=== PATIENT | male | born 2000 | race Two or more races ===

== ENCOUNTER 2020-10-28 10:18 | Emergency (ER) | payer OTHER, SELFPAY ==
--- NOTE | ~2020-10-28 | XR_ITS ---
EXAMINATION: XR CHEST CLINICAL INFORMATION: Cough COMPARISON: Chest x-ray May 17, 2016 TECHNIQUE: Frontal view of the chest was obtained. FINDINGS: Cardiac silhouette is normal in size. The lungs are well aerated. There is no lobar consolidation. No pleural effusion or pneumothorax. No gross osseous abnormality. XR/XR chest 1V IMPRESSION: Stable examination demonstrating no acute pulmonary pathology.
[2020-10-28 10:26] VITALS: BP 145/86; PULSE 112; RESP 18; TEMP 37.2; O2SAT 95; BMI 32.3
--- NOTE | 2020-10-28 10:43 | ECG_ITS ---
Test Reason : CP Blood Pressure : / mmHG Vent. Rate : 098 BPM Atrial Rate : 098 BPM P-R Int : 132 ms QRS Dur : 084 ms QT Int : 348 ms P-R-T Axes : 064 074 057 degrees QTc Int : 444 ms Normal sinus rhythm with sinus arrhythmia Normal ECG When compared with ECG of 17-MAY-2016 22:46, No significant changes seen Referred By: Sophie Hirsch Electronically Signed By:NOAH CALLES
--- NOTE | 2020-10-28 10:44 | ED.SOB ---
HPI - SOB/Dyspnea General Chief Complaint: Dyspnea Stated Complaint: DIFF BREATHING CHEST PAIN Time Seen by Provider: 10/28/20 10:44 Source: patient Mode of arrival: ambulatory Limitations: no limitations History of Present Illness MD elicited complaint: shortness of breath, cough, pain with inspiration and chest pain Onset (ago): day(s) (2) Context: other (started after rearranging his room and there was significant dust) Timing: constant Severity: moderate Exacerbating factors: exertion, coughing and inspiration Relieving factors: nothing Known history of: asthma (mom notes one time he needed an inhaler when he was younger but no formal dx of asthma) Associated symptoms: chest pain, pain with inspiration and cough Treatment prior to arrival: none Related Data Previous Rx's Medication Instructions Recorded prednisone 40 mg PO DAILY 5 Days #10 tab 10/28/20 Allergies Allergy/AdvReac Type Severity Reaction Status Date / Time No Known Allergies Allergy Unverified 01/11/20 16:56 [No Known Allergies*] Review of Systems Review of Systems: Constitutional : No Fever, No Chills ENT/Mouth : No sore throat, No Rhinorrhea, No Swallowing Difficulty Eyes: No Eye Pain, No Swelling, No Redness Cardiovascular : pos Chest Pain, positive SOB, No Orthopnea, no Edema Respiratory : No Cough, No Sputum, No Wheezing, positive dyspnea Gastrointestinal : No Nausea, No Vomiting, No Diarrhea, No abdominal Pain, No Hematochezia, No Melena Genitourinary : No Dysuria, No Urinary Frequency, No Hematuria Musculoskeletal : No joint pain, No Myalgias Skin : No Skin Lesions, No rash Neuro : No Weakness, No Numbness, No Dizziness, No Headache Psych : No Anxiety/Panic, No Depression Heme/Lymph: No Bruising, No Lymphadenopathy Endocrine : No Polyuria, No Polydipsia All other systems reviewed and are negative PMFSH Past Medical History Attestation statement: The following information was validated with the patient. Medical History Obesity (BMI 30-39.9) Family History Family History (Updated 09/05/20 @ 09:30 by Ronald Bates MD) Father Myocardial infarct Social History Social History (Updated 10/28/20 @ 11:02 by Sophie Hirsch DO) Alcohol intake: never Patient Tobacco Use Status: Never used Tobacco Advance Directives: No Advance Directives Information Provided: Yes Physical Exam Vital Signs: Vital Signs: Last Vital Signs Temp 98.9 F 10/28/20 10:26 Pulse 112 H 10/28/20 10:26 Resp 18 10/28/20 10:26 BP 145/86 H 10/28/20 10:26 Pulse Ox 95 10/28/20 10:26 Body Mass Index 32.3 Appearance: Alert. Oriented X3. No acute distress. Eyes: Pupils equal, round and reactive to light. ENT: Pharynx normal. Neck: Normal inspection. Neck supple. CVS: tachycardic heart rate and rhythm. Pulses normal. Respiratory: No respiratory distress. Breath sounds diminished with very faint end exp wheezes noted Abdomen: Soft and nontender. Skin: Skin warm and dry. Normal skin color. Normal skin turgor. Extremities: No lower extremity edema. No calf ttp Neuro: Oriented X 3. No motor deficit. No sensory deficit. Course Course Course Narrative: negative workup feels better after INH will DC home MDM - SOB/Dyspnea MDM Narrative Medical decision making narrative: 19 yo male with hx of reactive airway disease in the past was rearraning his room 2 days ago was exposed to a lot of dust - he c/o pleuritic chest pain since then with dyspnea , will need ddimer given tachycardia, troponin x 1, cxr, albuterol INH as this could just be reactive airway disease, he had his COVID shot about 2 months ago - myocarditis unlikely Lab Data Result diagrams: 10/28/20 11:49 10/28/20 11:49 Labs: Lab Results 10/28/20 10/28/20 10/28/20 Range/Units 11:40 11:49 11:49 WBC 13.7 H (4.8-10.8) X10*3/uL RBC 5.79 (4.60-5.80) X10*6/uL Hgb 15.5 (14.0-18.0) g/dl Hct 48.1 (42-52) % MCV 83.1 (80-98) fL MCH 26.8 L (27.0-33.0) pg MCHC 32.2 (31.0-36.0) g/dl RDW 13.7 (11.0-16.0) % Plt Count 247 (160-400) X10*3/uL MPV 10.8 (9.4-12.4) fL Immature Gran % (Auto) 0.4 (0.0-0.4) % Neut % (Auto) 69.7 (45-73) % Lymph % (Auto) 16.0 L (20-40) % [place] % (Auto) 9.3 (2-11) % Eos % (Auto) 4.2 H (0-4) % Baso % (Auto) 0.4 (0-2) % Lymph # (Auto) 2.2 (1.2-4.9) X10*3/uL [place] # (Auto) 1.3 H (0.1-1.2) X10*3/uL Eos # (Auto) 0.6 H (0.0-0.4) X10*3/uL Baso # (Auto) 0.1 (0.0-0.2) X10*3/uL Abs Immat Gran (auto) 0.05 H (0.00-0.03) X10*3/uL Absolute Neuts (auto) 9.6 H (2.0-8.3) X10*3/uL Absolute Nucleated RBC 0.000 (0.0-0.012) X10*3/uL Nucleated RBC % (auto) 0.0 (0.0-0.2) /100WBC D-Dimer < 200 NG/ML Sodium (135-145) mmol/L Potassium (3.3-5.1) mmol/L Chloride (96-108) mmol/L Carbon Dioxide (22-29) mmol/L Anion Gap (12-20) BUN (9-16) mg/dL Creatinine (0.5-1.4) mg/dL Estim Creat Clear Calc Estimated GFR Random Glucose (60-115) mg/dL Calcium (8.4-10.2) mg/dL Magnesium (1.6-2.6) mg/dL Total Bilirubin (0.0-1.0) mg/dL Direct Bilirubin (0.0-0.5) mg/dL AST (5-37) U/L ALT (0-40) U/L Alkaline Phosphatase (39-117) U/L Troponin I High Sens (<3.5-35.0) ng/L Total Protein (6.5-8.0) g/dL Albumin (3.5-5.0) g/dL Lipase (8-78) U/L COVID-19 (JENNIFER) Negative (Negative) COVID-19 Clin Com See Note 10/28/20 10/28/20 Range/Units 11:49 11:49 WBC (4.8-10.8) X10*3/uL RBC (4.60-5.80) X10*6/uL Hgb (14.0-18.0) g/dl Hct (42-52) % MCV (80-98) fL MCH (27.0-33.0) pg MCHC (31.0-36.0) g/dl RDW (11.0-16.0) % Plt Count (160-400) X10*3/uL MPV (9.4-12.4) fL Immature Gran % (Auto) (0.0-0.4) % Neut % (Auto) (45-73) % Lymph % (Auto) (20-40) % [place] % (Auto) (2-11) % Eos % (Auto) (0-4) % Baso % (Auto) (0-2) % Lymph # (Auto) (1.2-4.9) X10*3/uL [place] # (Auto) (0.1-1.2) X10*3/uL Eos # (Auto) (0.0-0.4) X10*3/uL Baso # (Auto) (0.0-0.2) X10*3/uL Abs Immat Gran (auto) (0.00-0.03) X10*3/uL Absolute Neuts (auto) (2.0-8.3) X10*3/uL Absolute Nucleated RBC (0.0-0.012) X10*3/uL Nucleated RBC % (auto) (0.0-0.2) /100WBC D-Dimer NG/ML Sodium 140 (135-145) mmol/L Potassium 4.5 (3.3-5.1) mmol/L Chloride 107 (96-108) mmol/L Carbon Dioxide 23 (22-29) mmol/L Anion Gap 15 (12-20) BUN 6 L (9-16) mg/dL Creatinine 0.92 (0.5-1.4) mg/dL Estim Creat Clear Calc 136.2 Estimated GFR > 60 Random Glucose 99 (60-115) mg/dL Calcium 9.8 (8.4-10.2) mg/dL Magnesium 2.2 (1.6-2.6) mg/dL Total Bilirubin 0.8 (0.0-1.0) mg/dL Direct Bilirubin 0.2 (0.0-0.5) mg/dL AST 19 (5-37) U/L ALT 24 (0-40) U/L Alkaline Phosphatase 100 (39-117) U/L Troponin I High Sens < 3.5 (<3.5-35.0) ng/L Total Protein 7.8 (6.5-8.0) g/dL Albumin 4.6 (3.5-5.0) g/dL Lipase 13 (8-78) U/L COVID-19 (JENNIFER) (Negative) COVID-19 Clin Com ECG Data Attestation: I personally reviewed and interpreted this ECG as follows: ECG interpretation date: 10/28/20 ECG interpretation time: 11:29 Interpretation: Rate: 98 Rhythm: NSR [place]: normal Normal P waves. Normal LASHAUN. Normal QRS complex. ST T wave : normal no TERENCE qTC: normal prior studies: no acute ischemia The study has been interpreted contemporaneously by me. . Scores Heart Score History: -0- slightly suspicious ECG: -0- normal Age: -0- < or = 45 Risk factory: -0- no risk factors known Troponin: -0- < or = normal limit Score: 0 Risk: 1.7% Discharge Plan Discharge Clinical Impression: Atypical chest pain, Mild intermittent reactive airway disease Patient Disposition: Home, Self-Care Instructions: Reactive Airways Disease (ED) Additional Instructions: return to ED for any worsening symptoms or concerns 2 puffs on inhaler every 4 hours for wheezing and shortness of breath Prescriptions: New prednisone 20 mg tablet 40 mg PO DAILY 5 Days Qty: 10 RF: 0 Referrals: Po,Ronald Cohn MD [Primary Care Provider] - 2 days (if not better) Stand Alone Forms: Work/School Release
[2020-10-28 11:55] LABS: MANUAL DIFF FLAG NO
[2020-10-28 11:57] LABS: Basophils Absolute Auto 0.1 X10*3/uL (0.0-0.2); Basophils Percent Auto 0.4 % (0-2); Eosinophils Absolute Auto 0.6 X10*3/uL (0.0-0.4); Eosinophils Percent Auto 4.2 % (0-4); Hematocrit 48.1 % (42-52); Hemoglobin 15.5 g/dl (14.0-18.0); Imm Gran Abs Auto 0.05 X10*3/uL (0.00-0.03); Imm Gran Pct Auto 0.4 % (0.0-0.4); Lymphocytes Absolute Auto 2.2 X10*3/uL (1.2-4.9); Mean Corpuscular HGB Conc 32.2 g/dl (31.0-36.0); Mean Corpuscular Hemoglobin 26.8 pg (27.0-33.0); Mean Corpuscular Volume 83.1 fL (80-98); Mean Platelet Volume 10.8 fL (9.4-12.4); Monocytes Absolute Auto 1.3 X10*3/uL (0.1-1.2); Monocytes Percent Auto 9.3 % (2-11); Neutrophils Absolute Auto 9.6 X10*3/uL (2.0-8.3); Neutrophils Percent Auto 69.7 % (45-73); Platelet Count 247 X10*3/uL (160-400); Red Blood Count 5.79 X10*6/uL (4.60-5.80); Red Cell Distribution Width 13.7 % (11.0-16.0); White Blood Count 13.7 X10*3/uL (4.8-10.8)
[2020-10-28 12:06] LABS: D Dimer < 200 NG/ML
[2020-10-28 12:11] LABS: COVID-19 Test Negative (Negative)
[2020-10-28] MEDS: Albuterol Sulfate 90 MCG 8 GM INHALER 2 PUFF INHALE (12:13)
[2020-10-28 12:24] LABS: Alanine Aminotransferase 24 U/L (0-40); Albumin Level 4.6 g/dL (3.5-5.0); Alkaline Phosphatase 100 U/L (39-117); Anion Gap 15 (12-20); Aspartate Amino Transferase 19 U/L (5-37); Bilirubin Direct 0.2 mg/dL (0.0-0.5); Bilirubin Total 0.8 mg/dL (0.0-1.0); Blood Urea Nitrogen 6 mg/dL (9-16); Calcium 9.8 mg/dL (8.4-10.2); Carbon Dioxide 23 mmol/L (22-29); Chloride 107 mmol/L (96-108); Creatinine Clr Calc Pharmacy 136.2; Estimated Glomerular Filt Rate > 60; Glucose Random 99 mg/dL (60-115); Lipase 13 U/L (8-78); Magnesium 2.2 mg/dL (1.6-2.6); Potassium 4.5 mmol/L (3.3-5.1); Sodium 140 mmol/L (135-145); Total Protein 7.8 g/dL (6.5-8.0)
[2020-10-28 12:26] LABS: Troponin-I High Sensitivity < 3.5 ng/L (<3.5-35.0)
[2020-10-28 12:45] VITALS: BP 134/88; PULSE 89; RESP 16; TEMP 37.2; O2SAT 98
== END 2020-10-28 12:47 | disposition home or self-care (01) ==
PROVIDERS: Emergency Provider Emergency Medicine; PCP Internal Medicine
DX: J45.20 Mild intermittent asthma, uncomplicated (principal); R07.89 Other chest pain; Z20.822 Contact with and (suspected) exposure to COVID-19
CPT/HCPCS: 36415; 71045; 80048; 80076; 83690; 83735; 84484; 85025; 85379; 87635; 93005; 99284

== ENCOUNTER 2021-10-17 10:16 | Outpatient (REF) | payer OTHER, SELFPAY ==
[2021-10-17 10:37] LABS: MANUAL DIFF FLAG NO
[2021-10-17 11:02] LABS: Basophils Absolute Auto 0.1 X10*3/uL (0.0-0.2); Basophils Percent Auto 0.4 % (0-2); Eosinophils Absolute Auto 0.4 X10*3/uL (0.0-0.4); Eosinophils Percent Auto 3.3 % (0-4); Hematocrit 48.6 % (42.0-52.0); Hemoglobin 15.3 g/dl (14.0-18.0); Imm Gran Abs Auto 0.05 X10*3/uL (0.00-0.03); Imm Gran Pct Auto 0.4 % (0.0-0.4); Lymphocytes Percent Auto 30.1 % (20-40); Mean Corpuscular HGB Conc 31.5 g/dl (31.0-36.0); Mean Corpuscular Hemoglobin 26.1 pg (27.0-33.0); Mean Corpuscular Volume 82.9 fL (80.0-98.0); Mean Platelet Volume 10.7 fL (9.4-12.4); Monocytes Absolute Auto 1.4 X10*3/uL (0.1-1.2); Monocytes Percent Auto 10.5 % (2-11); Neutrophils Absolute Auto 7.4 x10*3/uL (2.0-8.3); Neutrophils Percent Auto 55.3 % (45-73); Platelet Count 240 X10*3/uL (160-400); Red Blood Count 5.86 X10*6/uL (4.60-5.80); Red Cell Distribution Width 13.8 % (11.0-16.0); White Blood Count 13.3 X10*3/uL (4.8-10.8)
[2021-10-17 11:16] LABS: Estimated Average Glucose 108 mg/dL; Hemoglobin A1c % 5.4 %
[2021-10-17 11:31] LABS: Alanine Aminotransferase 25 U/L (0-40); Albumin Level 4.3 g/dL (3.5-5.0); Alkaline Phosphatase 100 U/L (39-117); Anion Gap 12 (12-20); Aspartate Amino Transferase 16 U/L (5-37); Bilirubin Total 0.5 mg/dL (0.0-1.0); Blood Urea Nitrogen 9 mg/dL (9-16); Calcium 9.3 mg/dL (8.4-10.2); Carbon Dioxide 26 mmol/L (22-29); Chloride 105 mmol/L (96-108); Cholesterol 179 mg/dL; Estimated Glomerular Filt Rate > 60; Glucose Random 92 mg/dL (60-115); HDL Cholesterol 41 mg/dL; LDL Cholesterol Calculated 114 mg/dl; Potassium 4.2 mmol/L (3.3-5.1); Sodium 139 mmol/L (135-145); Total Protein 7.3 g/dL (6.5-8.0); Triglycerides 121 mg/dL
[2021-10-17 11:54] LABS: Thyroid Stimulating Hormone 5.02 uIU/mL (0.32-4.0)
[2021-10-17 12:13] LABS: Folate 5.1 ng/mL (> or = 4.0); Vitamin B12 318 pg/mL (200-900)
== END 2021-10-17 10:17 | disposition home or self-care (01) ==
LOC: HO.LAB 10:16
PROVIDERS: PCP Internal Medicine; Visit Provider Internal Medicine
DX: E66.9 Obesity, unspecified (principal); E78.00 Pure hypercholesterolemia, unspecified
CPT/HCPCS: 36415; 80053; 80061; 82607; 82746; 83036; 84443; 85025

== ENCOUNTER 2022-01-24 09:46 | Outpatient (REF) | payer OTHER, SELFPAY ==
[2022-01-24 10:59] LABS: Thyroid Stimulating Hormone 2.51 uIU/mL (0.32-4.0)
== END 2022-01-24 09:47 | disposition home or self-care (01) ==
LOC: HO.LAB 09:46
PROVIDERS: PCP Internal Medicine; Visit Provider Internal Medicine
DX: R79.89 Other specified abnormal findings of blood chemistry (principal)
CPT/HCPCS: 36415; 84439; 84443

== ENCOUNTER 2023-02-01 18:12 | Emergency (ER) | payer OTHER, SELFPAY ==
[2023-02-01 19:03] VITALS: BP 140/87; PULSE 109; RESP 16; TEMP 36.4; O2SAT 96; BMI 39.2
--- NOTE | 2023-02-01 19:05 | ED_ITS ---
HPI - General Adult General Chief complaint: Abdominal Pain Stated complaint: stomachache/ backpain / nausea Source: patient Mode of arrival: ambulatory Limitations: no limitations History of Present Illness HPI narrative: Patient is a 22 year old assigned male at with a history of depression presenting to the emergency department today with abdominal pain, back pain, and nausea. Patient states that earlier today he had a moment of abdominal pain, back pain, and nausea however now, it has resolved. Patient denies any dizziness, lightheadedness, vomiting, fever, chills, blurry vision, double vision, loss of vision, chest pain, difficulty breathing, shortness of breath, night sweats, pain with urination, increased urinary frequency, increased urinary urgency, blood in his urine or stool, syncope or a near syncopal episode, recent trauma or falls, bowel incontinence, bladder incontinence, bowel retention, bladder retention, or any other complaints at this time. Onset (ago): hour(s) Location: back and abdomen Severity: mild Severity scale (1-10): 3 Pain Consistency: now resolved Relieving factors: none Exacerbating factors: none Associated symptoms: nausea/vomiting Treatments prior to arrival: none Related Data Previous Rx's Medication Instructions Recorded albuterol sulfate 90 mcg/actuation 2 puff inhalation Q4-6H PRN 11/04/21 aerosol inhaler (ProAir HFA) shortness of breath or wheezing #8.5 grams fluticasone propionate 44 2 puff inhalation BID #10.6 grams 07/20/22 mcg/actuation HFA aerosol inhaler (Flovent HFA) Allergies Allergy/AdvReac Type Severity Reaction Status Date / Time No Known Allergies Allergy Verified 02/01/23 19:02 [No Known Allergies*] Review of Systems 2 Constitutional: Constitutional: Reports no additional constitutional complaints, Denies chills, Denies fever(s) and Denies night sweats Eyes: Eyes: Reports no additional eye complaints, Denies blurry vision, Denies change in vision, Denies diplopia, Denies eye discharge, Denies loss of vision and Denies eye pain ENT: Denies dizziness Cardiovascular: Cardiovascular: Reports no additional cardiovascular complaints, Denies chest pain, Denies lightheadedness, Denies Loss of Consciousness and Denies dyspnea Respiratory: Respiratory: Reports no additional respiratory complaints and Denies dyspnea Gastrointestinal: Gastrointestinal: Reports no additional gastrointestinal complaints, Reports abdominal pain, Denies melena, Denies hematochezia, Denies change in bowel habits, Denies change in stool character, Reports nausea and Denies vomiting Genitourinary: Genitourinary: Reports no additional male genitourinary complaints, Denies hematuria, Denies oliguria, Denies difficulty urinating, Denies dysuria, Denies urinary frequency, Denies urinary hesitancy, Denies urinary incontinence and Denies urinary urgency Musculoskeletal: Musculoskeletal: Reports no additional musculoskeletal complaints, Reports back pain, Denies numbness and Denies tingling Neurologic: Denies dizziness, Denies loss of vision, Denies numbness and Denies tingling Psychiatric: Psychiatric: Reports no additional psychiatric complaints Endocrine: Endocrine: Reports no additional endocrine complaints Hematologic/Lymphatic: Hematologic/Lymphatic: Reports no additional hematologic/lymphatic complaints Allergic/Immunologic: Allergic/Immunologic: Reports no additional allergic/immunologic complaints [facility] Past Medical History Attestation statement: The following information was validated with the patient. Source: old records reviewed and nursing notes reviewed Medical History Obesity (BMI 30-39.9) Surgical History No pertinent past surgical history Family History Family History Father Myocardial infarct Social History Social History Housing: Other Alcohol intake: current Patient Tobacco Use Status: Never used Tobacco e-Cigarette/Vaping Use: Never Used Second Hand Smoke Exposure: No Advance Directives: No Advance Directives Information Provided: No service: No Current occupational status: employed Cognitive needs: No Hearing needs: No Vision needs: Yes (glasses) Physical Exam ED Vital Signs: BMI result Body Mass Index 39.2 Const General: cooperative, no acute distress, alert and awake Nutritional Appearance: well nourished Orientation/consciousness: patient oriented x3 Limitations: no limitations HENMT Head: Yes normal to inspection and Yes atraumatic Ears: hearing grossly normal bilaterally and external ears normal General nose exam: Normal external nose present, no nasal discharge noted and no epistaxis Face and sinus: Yes normal facial exam, No abrasion and No laceration Mouth: Normal oral and palatal mucosa present, no drooling and no muffled voice Eyes General: appearance normal, both eyes and all related structures Periorbital: periorbital findings normal Eyelids: Yes eyelids normal Conjunctivae: conjunctivae normal Pupils: Equal, round and reactive pupils present EOM: EOMs intact bilaterally Neck Neck: Yes normal visual inspection, Yes full ROM and Yes no lymphadenopathy Chest Chest palpation & inspection: normal inspection of the chest Resp Effort & Inspection: normal respiratory effort and able to speak in complete sentences GI Inspection: Yes normal to inspection Neuro General: patient oriented x3 and moves all extremities Cranial nerves: Yes Equal, round and reactive pupils present Cognition (Neuro): normal cognition Motor exam (neuro): 5/5 motor strength present throughout Sensory Exam: Normal double simultaneous stimulation for sensation Coordination: [id number] test normal Extrem General: Yes normal to inspection, Yes full ROM and Yes capillary refill normal Psych Appearance: grossly normal Mental Status: mental status grossly normal Affect: normal affect Attitude: cooperative Thought process: Normal thought process present Thought content: Normal thought content present Insight: Good insight present (Psych) Course Course Course Narrative: RME performed by Shakila Cardoza PA-C. Patient is a 22 year old assigned male at presenting to the emergency department with abdominal pain and low back pain. Labs ordered. Patient placed back in the waiting room pending room availability and results. Medical Decision Making Medical Decision Making [facility] Narrative: Patient is a 22 year old assigned male at with a history of depression presenting to the emergency department today with now resolved abdominal pain, back pain, and nausea. Patient's limited physical exam performed in triage was unremarkable. Patient's blood work showed an elevated WBC count of 15.3 but was otherwise unremarkable. Patient left the department without completing treatment. Patient left the department before myself or any of the other emergency department clinicians could explain physical exam findings, test results, need or lack there of for further testing, treatment options, or a treatment plan. Differential Diagnosis Differential Diagnoses: The differential diagnosis associated with the presentation includes Abdominal pain Nausea Admission/Observation Consideration of admission/observation: Escalation of care including admission/observation considered Patient would have been admitted to the hospital had his work up had any findings where hospital admission was appropriate, his clinical presentation warranted hospital admission, and he hadn't left the department without completing treatment. Lab Data MDM Lab Attestation statement: I reviewed the patient's lab results. My interpretation of these results are in the MDM rationale portion of this note. 02/01/23 19:25 02/01/23 19:25 Labs: Lab Results 02/01/23 Range/Units 19:25 WBC 15.3 H (4.8-10.8) X10*3/uL RBC 6.32 H (4.60-5.80) X10*6/uL Hgb 16.8 (14.0-18.0) g/dl Hct 51.5 (42.0-52.0) % MCV 81.5 (80.0-98.0) fL MCH 26.6 L (27.0-33.0) pg MCHC 32.6 (31.0-36.0) g/dl RDW 13.6 (11.0-16.0) % Plt Count 270 (160-400) X10*3/uL MPV 10.1 (9.4-12.4) fL Immature Gran % (Auto) 0.4 (0.0-0.4) % Neut % (Auto) 78.4 H (45-73) % Lymph % (Auto) 13.2 L (20-40) % [place] % (Auto) 6.9 (2-11) % Eos % (Auto) 0.7 (0-4) % Baso % (Auto) 0.4 (0-2) % Lymph # (Auto) 2.0 (1.2-4.9) X10*3/uL [place] # (Auto) 1.1 (0.1-1.2) X10*3/uL Eos # (Auto) 0.1 (0.0-0.4) X10*3/uL Baso # (Auto) 0.1 (0.0-0.2) X10*3/uL Abs Immat Gran (auto) 0.06 H (0.00-0.03) X10*3/uL Absolute Neuts (auto) 12.0 H (2.0-8.3) x10*3/uL Absolute Nucleated RBC 0.000 (0.0-0.012) X10*3/uL Nucleated RBC % (auto) 0.0 (0.0-0.2) /100WBC Sodium 142 (135-145) mmol/L Potassium 4.0 (3.3-5.1) mmol/L Chloride 106 (96-108) mmol/L Carbon Dioxide 24 (22-29) mmol/L Anion Gap 16 (12-20) BUN 7 L (9-16) mg/dL Creatinine 0.89 (0.5-1.4) mg/dL Estim Creat Clear Calc 156.5 Estimated GFR > 60 Random Glucose 95 (60-115) mg/dL Calcium 9.7 (8.4-10.2) mg/dL Magnesium 2.2 (1.6-2.6) mg/dL Total Bilirubin 0.3 (0.0-1.0) mg/dL AST 25 (5-37) U/L ALT 23 (0-40) U/L Alkaline Phosphatase 89 (39-117) U/L Total Protein 8.2 H (6.5-8.0) g/dL Albumin 4.5 (3.5-5.0) g/dL Discharge Plan Discharge Clinical Impression: Abdominal pain Patient Disposition: Left W/O Completing Treatment Prescriptions: No Action albuterol sulfate [ProAir HFA] 90 mcg/actuation HFA aerosol inhaler 2 puff inhalation Q4-6H PRN (Reason: shortness of breath or wheezing) Qty: 8.5 0RF fluticasone propionate [Flovent HFA] 44 mcg/actuation HFA aerosol inhaler 2 puff inhalation BID Qty: 10.6 0RF Rx Instructions: administer with spacer Interventions: ED Discharge Assessment Last Done: 02/01/23 22:55 Discharge Date/Time: 02/01/23 22:58
--- NOTE | 2023-02-01 22:53 | PC.NURSE ---
Called in [facility], not in [facility] @ this time.
== END 2023-02-01 22:58 | disposition left against medical advice (07) ==
PROVIDERS: Emergency Provider Emergency Medicine
DX: R10.13 Epigastric pain (principal); M54.50 Low back pain, unspecified; R11.2 Nausea with vomiting, unspecified; Z79.899 Other long term (current) drug therapy
CPT/HCPCS: 36415; 80053; 83735; 85025; 99282; 99283

== ENCOUNTER 2023-06-18 08:47 | Outpatient (AMB) | payer OTHER, SELFPAY ==
[2023-06-18 08:51] VITALS: BP 128/90; PULSE 74; O2SAT 100; BMI 38.1
--- NOTE | 2023-06-18 08:51 | A.OFFPC_ITS ---
Vital Signs 06/18/23 08:51 06/18/23 09:17 Height 5 ft 7 in Weight 243 lb 0.4 oz BMI 38.1 BP 128/90 H 120/80 Blood Pressure Location Lt brachial Lt brachial Position Sitting Sitting Pulse 74 Pulse Source Pulse Oximeter Pulse Oximetry (%) 100 Oxygen Delivery Method Room Air Intake Visit Reasons: PE Intake Note: Patient is here today for a physical. 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 Allergies No Known Allergies [No Known Allergies*] Allergy (Verified 06/18/23 08:52) Medication List - Last Reconciled 06/18/23 by Ronald Bates MD albuterol sulfate 90 mcg/actuation (ProAir HFA) 2 puffs inhalation Q4-6H PRN Tobacco use date assessed: 06/18/23 Dental Screening Dental Screen Date: 06/18/23 Did you have a dental visit in the last 12 months?: Yes Did you have a dental problem in the last 6 months where you did not have access to dental care?: No Was dental information given to patient?: Patient has dentist HPI PE HPI Details 22-year-old obese male with a history of recurrent major depression and reactive airway disease last seen in June 2022 coming in for physical exam. Review of the notes in January was in the emergency room for stomach with back pain and nausea patient left AMA noted elevated WBC presently has no work and depressed but otherwise no other symptoms of problems. As for the pain described it as the right upper quadrant and goes to the back denies any urinary symptoms no fever. ON LICENSE OF [facility] Medical History Obesity (BMI 30-39.9) Surgical History No pertinent past surgical history Family History (Updated 06/18/23 @ 09:19 by Ronald Bates MD) Father Myocardial infarct, Onset Age: 50 Social History (Updated 06/18/23 @ 09:20 by Ronald Bates MD) Housing: Other Alcohol intake: current Comment: once Q 2 month 1 can Patient Tobacco Use Status: Never used Tobacco e-Cigarette/Vaping Use: Never Used Second Hand Smoke Exposure: No service: No Current occupational status: employed Cognitive needs: No Hearing needs: No Vision needs: Yes (glasses) Questionnaire PHQ-9 Over the last 2 weeks, how often have you been bothered by any of the following problems? 1. Little interest or pleasure in doing things: several days 2. Feeling down, depressed, or hopeless: more than half the days 3. Trouble falling or staying asleep, or sleeping too much: several days 4. Feeling tired or having little energy: several days 5. Poor appetite or overeating: not at all 6. Feeling bad about yourself - or that you are a failure or have let yourself or your family down: nearly every day 7. Trouble concentrating on things, such as reading the newspaper or watching television: nearly every day 8. Moving or speaking so slowly that other people could have noticed. Or the opposite - being so fidgety or restless that you have been moving around a lot more than usual: not at all 9. Thoughts that you would be better off or of hurting yourself in some way: several days Total score: 12 Depression Screening Interpretation: Positive Depression Screening Done: Yes Source: Developed by Drs. Dinesh Matta, Chioma Camacho, Allan Allen and colleagues, with an educational jamie from [employer]. Thrive Questionnaire Date Thrive assessed: 06/18/23 I am a: Patient What is your living situation today?: I have a steady place to live Within the past 12 months, did the food you bought not last and you didn't have the money to get more?: Never true Within the past 12 months, did you worry whether your food would run out before you got money to buy more?: Never true Do you have trouble paying for medicines?: No Do you have trouble getting transportation to medical appointments?: No Do you have trouble paying your heating and electricity bill?: No Do you have trouble taking care of your child, family member or friend?: No Do you have trouble with day-to-day activities such as bathing, preparing meals, shopping, managing finances, etc.?: No Are you currently unemployed and looking for a job?: No Are you interested in more education?: No Please select the resources that you would like help with: None THRIVE Score: 0 AUDIT C Alcohol Use Questionnaire (AUDIT-C) 1. How often do you have a drink containing alcohol?: Monthly or less 2. How many drinks containing alcohol do you have on a typical day when you are drinking?: 1 or 2 3. How often do you have six or more drinks on one occasion?: Never Total Score: 1 Score Reviewed/Action Taken: No MILAGROS-7 AMB Questionnaire MILAGROS-7 Date MILAGROS - 7 assessed: 06/18/23 Feeling nervous, anxious, or on edge: 2 = More than half the days Not being able to stop or control worryin = More than half the days Worrying too much about different things: 2 = More than half the days Trouble relaxin = Not at all Being so restless that it is hard to sit still: 1 = Several days Becoming easily annoyed or irritable: 1 = Several days Feeling afraid as if something awful might happen: 2 = More than half the days (pt states recently ) Total MILAGROS-7 score (0-4 normal; 5-9 mild; 10-14 moderate; 15-21 severe): 10 Source: Developed by Drs. Dinesh Matta, Chioma Camacho, Allan Allen and colleagues, with an educational jamie from [employer]. Review of Systems Const Denies poor appetite and Denies weakness Eyes Denies no additional complaints ENT Reports Normal hearing present, Denies dizziness, Denies nasal congestion, Denies tinnitus and Denies sore throat Card Denies chest pain, Denies syncope, Denies rapid heart rate and Denies dyspnea Resp Denies cough and Denies dyspnea GI Denies change in stool character, Reports constipation, Denies diarrhea, Denies nausea and Denies vomiting Denies dysuria and Denies urinary frequency Neuro Reports Normal hearing present, Denies confusion, Denies dizziness, Denies syncope and Denies weakness Psych Denies confusion Physical exam (Primary Care) Vital Signs: Last Vital Signs Pulse 74 06/18/23 08:51 BP 128/90 H 06/18/23 08:51 Pulse Ox 100 06/18/23 08:51 Oxygen Delivery Method Room Air 06/18/23 08:51 BMI result Body Mass Index 38.1 Tobacco/Smoking Status: Tobacco use Status Tobacco use date assessed 06/18/23 06/18/23 08:59 Patient Tobacco Use Status Never used Tobacco 06/18/23 08:59 e-Cigarette/Vaping Use Never Used 06/18/23 08:59 PHQ-9: PHQ-9 Score PHQ-9: Total score 12 06/18/23 08:59 Depression Screening Interpretation: Positive Thrive Assessment: Date of Thrive Assessment Date Thrive assessed 06/18/23 06/18/23 08:59 Const General: alert and awake; No confusion Orientation/consciousness: No confusion HENMT Head: Yes normocephalic Ears: external ears normal and TM's normal bilaterally Face and sinus: Yes normal facial exam Mouth: moist mucous membranes Throat: Yes tonsils normal Eyes Conjunctivae: conjunctivae normal Pupils: Equal, round and reactive pupils present and Pupil accommodation reflex normal Direct Ophthalmoscopy: normal light reflex Neck Neck: No lymphadenopathy Thyroid: Thyroid normal Chest Chest palpation & inspection: normal inspection of the chest Resp Effort & Inspection: normal respiratory effort and no audible wheezes Auscultation: clear to auscultation bilaterally, no crackles, no wheezes and lung sounds not diminished Cardio Rate: regular rate Rhythm: regular rhythm Peripheral pulses: radial pulses present and dorsalis pedis present GI Other: no rebound, no guarding - vague RUQ pain , no swelling , rectal visual negative Palpation (GI): no masses Auscultation: normal bowel sounds and normoactive bowel sounds Rectal Exam - Male: Yes deferred Male General Exam: Yes normal external exam Skin General skin exam: no rashes or lesions noted Rashes: no rashes Neuro General: deep tendon reflexes 2+ bilaterally and No confusion Cranial nerves: Yes Equal, round and reactive pupils present, Yes Midline tongue present, Yes Normal hearing present and Yes Ability to bilaterally elevate shoulders present Cognition (Neuro): normal cognition Gait exam (Neuro): Normal gait present Motor exam (neuro): 5/5 motor strength present throughout Deep tendon reflexes (DTR's): Right brachioradialis reflex intensity grade: 2+, Left brachioradialis reflex intensity grade: 2+, Right patellar reflex intensity grade: 2+ and Left patellar reflex intensity grade: 2+ Extrem General: No edema Assessment and Plan Assessment & Plan (1) Annual physical exam: Code(s): Z00.00 - Encounter for general adult medical examination without abnormal findings (2) Obesity (BMI 30-39.9): Code(s): E66.9 - Obesity, unspecified Plan: Diet and exercise (3) Reactive airway disease: Code(s): J45.909 - Unspecified asthma, uncomplicated Plan: Continue with albuterol as needed (4) Recurrent major depression: Code(s): F33.9 - Major depressive disorder, recurrent, unspecified Plan: Discussed about counseling and therapy (5) RUQ abdominal pain: Code(s): R10.11 - Right upper quadrant pain Orders: Orders US abdomen complete Today R10.11 - Right upper quadrant pain, R79.89 - Other specified abnormal findings of blood chemistry Referrals Psychiatry Referral F33.9 - Major depressive disorder, recurrent, unspecified Coding Level of Care Code Est Pt Prev Care [id number]) Diagnoses Annual physical exam Z00.00 Obesity (BMI 30-39.9) E66.9 Reactive airway disease J45.909 Recurrent major depression F33.9 RUQ abdominal pain R10.11
[2023-06-18 09:17] VITALS: BP 120/80
== END 2023-06-18 09:42 | disposition home or self-care (01) ==
PROVIDERS: Visit Provider Internal Medicine
DX: Z00.00 Encounter for general adult medical examination without abnormal findings (principal); F33.9 Major depressive disorder, recurrent, unspecified; E66.9 Obesity, unspecified; Z23 Encounter for immunization; Z68.38 Body mass index [BMI] 38.0-38.9, adult; J45.909 Unspecified asthma, uncomplicated; R10.11 Right upper quadrant pain
CPT/HCPCS: 90471; 90715; 99395

== ENCOUNTER 2023-07-19 08:51 | Outpatient (REF) | payer OTHER, SELFPAY ==
--- NOTE | ~2023-07-19 | US_ITS ---
EXAMINATION: US ABDOMEN COMPLETE CLINICAL INFORMATION: Other specified abnormal findings of blood chemistry. Right upper quadrant pain COMPARISON: None available. TECHNIQUE: Real-time imaging of the abdominal viscera. FINDINGS: PANCREAS: Most of the pancreas obscured by bowel gas ABDOMINAL AORTA: The proximal, mid, and distal segments are normal in caliber. INFERIOR VENA CAVA: Visualized portions are normal. LIVER: Liver is mildly enlarged with the right lobe measures 17.6 cm and increased echogenicity due to hepatic steatosis. The liver contour is normal. No focal hepatic lesion. There is no intrahepatic biliary duct dilatation seen. GALLBLADDER: Normal. The gallbladder is physiologically distended without evidence of stones, sludge, polyps, wall thickening or pericholecystic fluid. COMMON BILE DUCT: Normal in caliber measuring 0.2 cm in diameter. RIGHT KIDNEY: Normal. No hydronephrosis. No renal calculi or focal parenchymal lesions. The kidney measures 10.2 cm in maximum dimension. LEFT KIDNEY: Normal. No hydronephrosis. No renal calculi or focal parenchymal lesions. The kidney measures 10.7 cm in maximum dimension. SPLEEN: Normal. The spleen measures 10.3 cm in maximum dimension. FREE FLUID: None. US/US abdomen complete IMPRESSION: Hepatomegaly and mild hepatic steatosis
== END 2023-07-19 08:52 | disposition home or self-care (01) ==
LOC: HO.US 08:51
PROVIDERS: PCP Internal Medicine; Visit Provider Internal Medicine
DX: R79.89 Other specified abnormal findings of blood chemistry (principal); R10.11 Right upper quadrant pain
CPT/HCPCS: 76700

== ENCOUNTER 2024-06-22 16:19 | Outpatient (AMB) | payer OTHER, SELFPAY ==
[2024-06-22 16:49] VITALS: BP 110/78; PULSE 91; O2SAT 99; BMI 39.0
--- NOTE | 2024-06-22 16:49 | MHC.PC.OV ---
Vital Signs 06/22/24 16:49 Height 5 ft 7 in Weight 249 lb 2 oz BMI 39.0 BP 110/78 Blood Pressure Location Lt brachial Position Sitting Pulse 91 Pulse Source Pulse Oximeter Pulse Oximetry (%) 99 Oxygen Delivery Method Room Air Intake Visit Reasons: Annual Exam Cost Analyst Required: No Accompanied by: Self / Same As Patient Allergies No Known Allergies [No Known Allergies*] Allergy (Verified 06/22/24 16:50) Medication List - Last Reconciled 06/22/24 by Ronald Batse MD albuterol sulfate 90 mcg/actuation (ProAir HFA) 2 puffs inhalation Q4-6H PRN sertraline once q 2 weeks counselling [facility] Tobacco use date assessed: 06/22/24 Dental Screening Dental Screen Date: 06/22/24 Did you have a dental visit in the last 12 months?: Yes Did you have a dental problem in the last 6 months where you did not have access to dental care?: No Was dental information given to patient?: Patient has dentist [facility] Medical History Obesity (BMI 30-39.9) Surgical History No pertinent past surgical history Family History (Updated 06/22/24 @ 17:02 by Ronald Bates MD) Father Myocardial infarct, Onset Age: 50 Lung cancer Social History Housing: Other Alcohol intake: current Comment: once Q 2 month 1 can Patient Tobacco Use Status: Never used Tobacco e-Cigarette/Vaping Use: Never Used Second Hand Smoke Exposure: No service: No Current occupational status: employed Cognitive needs: No Hearing needs: No Vision needs: Yes (glasses) Questionnaire PHQ-9 Over the last 2 weeks, how often have you been bothered by any of the following problems? 1. Little interest or pleasure in doing things: several days 2. Feeling down, depressed, or hopeless: more than half the days 3. Trouble falling or staying asleep, or sleeping too much: several days 4. Feeling tired or having little energy: several days 5. Poor appetite or overeating: several days 6. Feeling bad about yourself - or that you are a failure or have let yourself or your family down: nearly every day 7. Trouble concentrating on things, such as reading the newspaper or watching television: several days 8. Moving or speaking so slowly that other people could have noticed. Or the opposite - being so fidgety or restless that you have been moving around a lot more than usual: not at all 9. Thoughts that you would be better off or of hurting yourself in some way: more than half the days Total score: 12 Source: Developed by Drs. Dinesh Matta, Chioma Camacho, Allan Allen and colleagues, with an educational jamie from [employer]. Thrive Questionnaire Date Thrive assessed: 06/22/24 I am a: Patient What is your living situation today?: I have a steady place to live Within the past 12 months, did the food you bought not last and you didn't have the money to get more?: Often true Within the past 12 months, did you worry whether your food would run out before you got money to buy more?: Sometimes True Do you have trouble paying for medicines?: I choose not to answer this question Do you have trouble getting transportation to medical appointments?: No Do you have trouble paying your heating and electricity bill?: I choose not to answer this question Do you have trouble taking care of your child, family member or friend?: No Do you have trouble with day-to-day activities such as bathing, preparing meals, shopping, managing finances, etc.?: I choose not to answer this question Are you currently unemployed and looking for a job?: Yes Are you interested in more education?: Yes Please select the resources that you would like help with: None Currently or been in a relationship where the following occur: No concerns reported THRIVE Score: 2 AUDIT C Alcohol Use Questionnaire (AUDIT-C) 1. How often do you have a drink containing alcohol?: Monthly or less 2. How many drinks containing alcohol do you have on a typical day when you are drinking?: 3 or 4 3. How often do you have six or more drinks on one occasion?: Never Total Score: 2 MILAGROS-7 AMB Questionnaire MILAGROS-7 Date MILAGROS - 7 assessed: 06/22/24 Feeling nervous, anxious, or on edge: 0 = Not at all Not being able to stop or control worryin = Not at all Worrying too much about different things: 0 = Not at all Trouble relaxin = Several days Being so restless that it is hard to sit still: 2 = More than half the days Becoming easily annoyed or irritable: 1 = Several days Feeling afraid as if something awful might happen: 2 = More than half the days Total MILAGROS-7 score (0-4 normal; 5-9 mild; 10-14 moderate; 15-21 severe): 6 Source: Developed by Drs. Dinesh Matta, Chioma Camacho, Allan Allen and colleagues, with an educational jamie from [employer]. Review of Systems Const Denies poor appetite and Denies weakness Eyes Denies no additional complaints ENT Reports Normal hearing present, Denies dizziness, Denies nasal congestion, Denies tinnitus and Denies sore throat Card Denies chest pain, Denies syncope, Denies rapid heart rate and Denies dyspnea Resp Denies cough and Denies dyspnea GI Denies change in stool character, Reports constipation, Denies diarrhea, Denies nausea and Denies vomiting Denies dysuria and Denies urinary frequency Neuro Reports Normal hearing present, Denies confusion, Denies dizziness, Denies syncope and Denies weakness Psych Denies confusion Physical exam (Primary Care) Vital Signs: Last Vital Signs Pulse 91 06/22/24 16:49 BP 110/78 06/22/24 16:49 Pulse Ox 99 06/22/24 16:49 Oxygen Delivery Method Room Air 06/22/24 16:49 BMI result Body Mass Index 39.0 Tobacco/Smoking Status: Tobacco use Status Tobacco use date assessed 06/22/24 06/22/24 16:55 Patient Tobacco Use Status Never used Tobacco 06/22/24 16:55 e-Cigarette/Vaping Use Never Used 06/22/24 16:55 PHQ-9: PHQ-9 Score PHQ-9: Total score 12 06/22/24 16:58 Thrive Assessment: Date of Thrive Assessment Date Thrive assessed 06/22/24 06/22/24 16:55 Currently or been in a relationship where the following occur: No concerns reported Const General: alert and awake; No confusion Orientation/consciousness: No confusion HENMT Head: Yes normocephalic Ears: external ears normal and TM's normal bilaterally Face and sinus: Yes normal facial exam Mouth: moist mucous membranes Throat: Yes tonsils normal Eyes Conjunctivae: conjunctivae normal Pupils: Equal, round and reactive pupils present and Pupil accommodation reflex normal Direct Ophthalmoscopy: normal light reflex Neck Neck: No lymphadenopathy Thyroid: Thyroid normal Chest Chest palpation & inspection: normal inspection of the chest Resp Effort & Inspection: normal respiratory effort and no audible wheezes Auscultation: clear to auscultation bilaterally, no crackles, no wheezes and lung sounds not diminished Cardio Rate: regular rate Rhythm: regular rhythm Peripheral pulses: radial pulses present and dorsalis pedis present GI Palpation (GI): no masses Auscultation: normal bowel sounds and normoactive bowel sounds Rectal Exam - Male: Yes deferred Skin General skin exam: no rashes or lesions noted Rashes: no rashes Neuro General: deep tendon reflexes 2+ bilaterally and No confusion Cranial nerves: Yes Equal, round and reactive pupils present, Yes Midline tongue present, Yes Normal hearing present and Yes Ability to bilaterally elevate shoulders present Cognition (Neuro): normal cognition Gait exam (Neuro): Normal gait present Motor exam (neuro): 5/5 motor strength present throughout Deep tendon reflexes (DTR's): Right brachioradialis reflex intensity grade: 2+, Left brachioradialis reflex intensity grade: 2+, Right patellar reflex intensity grade: 2+ and Left patellar reflex intensity grade: 2+ Extrem General: No edema Coding Level of Care Code Est Pt Prev Care 18-39y(56232) Diagnoses Annual physical exam Z00.00 Reactive airway disease J45.909 Recurrent major depression F33.9 Hepatic steatosis K76.0 Obesity (BMI 30-39.9) E66.9 Assessment & Plan Assessment & Plan (1) Annual physical exam: Code(s): Z00.00 - Encounter for general adult medical examination without abnormal findings Category: Medical Plan: Patient is advised to eat healthy, keep well hydrated, keep active and have adequate sleep. (2) Reactive airway disease: Code(s): J45.909 - Unspecified asthma, uncomplicated Category: Medical Plan: Continue with albuterol as needed (3) Recurrent major depression: Code(s): F33.9 - Major depressive disorder, recurrent, unspecified Category: Medical Plan: Continue with sertraline and discussed about counseling and therapy (4) Hepatic steatosis: Comment: June 2023 Code(s): K76.0 - Fatty (change of) liver, not elsewhere classified Category: Medical Plan: Low-fat diet and exercise (5) Obesity (BMI 30-39.9): Code(s): E66.9 - Obesity, unspecified Category: Medical Plan: Diet and exercise Plan History of Present Illness The patient is a 23-year-old male presenting for a routine physical examination. He has a history of hepatic steatosis identified through a liver ultrasound in June 2023 due to elevated liver function tests, which confirmed mild hepatic steatosis. The patient is advised that lifestyle modifications, including a low-fat diet and regular exercise, are crucial for managing this condition and preventing progression to liver fibrosis. The patient is also under treatment for major depressive disorder with sertraline 25 mg, which he reports is maintaining his mental health effectively. He attends biweekly therapy sessions for additional support. Asthma is another part of his medical history, though he reports infrequent use of his albuterol inhaler. He has no history of recent surgeries outside of wisdom teeth removal and reports a normal blood pressure reading at his last check-up. Family history noted includes significant cardiovascular and oncological conditions, with his father having a history of heart attack and lung cancer related to smoking. Health Maintenance - Continues on sertraline 25 mg for depression, attending therapy every two weeks. - Albuterol inhaler prescribed as needed for asthma; limited use reported. - Recommended lifestyle changes include maintaining a low-fat diet and regular exercise for management of hepatic steatosis. - Blood work including hepatic and renal function tests to be repeated due to ongoing medication use. - Advised to get a flu vaccine due to the season extending up to July. - Last recorded tetanus shot was current. Social History - Non-smoker, denies use of recreational drugs. - Consumes alcohol rarely, last consumed during [facility] Day last year. - Engaged in therapy sessions in person every two weeks for mental health support. - Advised on maintaining a healthy diet and active lifestyle for managing hepatic steatosis. Review of Systems - Constitutional: Denies fever, chills, changes in weight. - Respiratory: Denies shortness of breath, cough. - Cardiovascular: Denies chest pain, palpitations. - Gastrointestinal: Denies nausea, vomiting, diarrhea, constipation; reports normal bowel movements. - Neurological: Denies dizziness, syncope. - Genitourinary: Reports nocturia, waking up once at night to urinate. - Psychiatric: Reports manageable depression symptoms with current treatment; engaged in therapy. Physical Exam General: Obese male, cooperative, healthy appearing, comfortable, no acute distress and well developed Orientation: Patient oriented x3 Limitations: No limitations Head: Normal to inspection Ears: Hearing grossly normal bilaterally Nose: Normal external nose present Face and sinus: Normal facial exam Eyes: Appearance normal, both eyes and all related structures Neck: Normal visual inspection and Yes full ROM Respiratory: Normal respiratory effort and able to speak in complete sentences. Clear to auscultation bilaterally Cardiovascular: Regular rate and rhythm. Normal S1 and S2 GI: Normal to inspection. Soft to palpation and nontender Skin: No rashes or lesions noted Neuro: Patient oriented x3 Extremities: Normal to inspection Results - Imaging: Liver ultrasound in June 2023 shows mild hepatic steatosis. - Labs: Elevated liver function tests prompting the ultrasound, details not specified in conversation. Plan To manage the patient's hepatic steatosis, I advised adherence to a low-fat diet and regular exercise. He will continue using his albuterol inhaler for asthma as required, though frequency of use is rare. Repeat liver and kidney function tests are planned due to ongoing sertraline prescription. The patient will maintain his current regimen with sertraline and continue biweekly therapy sessions for his major depressive disorder. I recommended the patient receive a flu shot given the ongoing season. Patient was informed and verbally consented to the use of an ambient scribe for clinic note documentation during this visit. Discussion Notes I discussed the likely diagnosis of hepatic steatosis and emphasized the importance of lifestyle modifications, including diet and exercise, to prevent disease progression. We reviewed the current management of his asthma with the infrequent need for albuterol and his major depressive disorder, which appears well-managed with sertraline and regular therapy. I highlighted the importance of continued mental health support through biweekly sessions and the minimal use of the inhaler suggesting good asthma control. We also discussed receiving the flu shot as a preventive measure. Detailed instructions for lab work were provided, and I encouraged compliance with these recommendations. Patient Instructions - Continue with sertraline 25 mg and attend therapy every two weeks. - Use albuterol inhaler as needed. - Follow a low-fat diet and engage in regular exercise to manage hepatic steatosis. - Schedule and complete blood tests for liver and kidney function. - Receive a flu vaccine this season before July. - Monitor symptoms and seek medical care if any new or worsening symptoms arise. Orders: Orders Hemoglobin A1c Today F33.9 - Major depressive disorder, recurrent, unspecified Ferritin Today F33.9 - Major depressive disorder, recurrent, unspecified Complete Blood Count Auto Diff Today F33.9 - Major depressive disorder, recurrent, unspecified Comprehensive Met. Panel Today F33.9 - Major depressive disorder, recurrent, unspecified Free T4 (Free Thyroxine) Today F33.9 - Major depressive disorder, recurrent, unspecified Lipid Panel Today E78.00 - Pure hypercholesterolemia, unspecified, F33.9 - Major depressive disorder, recurrent, unspecified Thyroid Stimulating Hormone Today F33.9 - Major depressive disorder, recurrent, unspecified Vitamin B12 and Folate Today F33.9 - Major depressive disorder, recurrent, unspecified
--- OUTSIDE RECORDS SUMMARY | 2024-06-22 19:23 | XMS_ITS | Encounter Summary ---
Author Organization [facility] Address [address] [place] [phone] Phone Care Team Providers Care Watcher Lookout Tower Name Role Phone Unavailable Primary Care Provider Unavailabl e Encounter Details Date Type Department Care Team (Late st Contact Info) Description 12/14/2012 Documentation [facility] [place] [address] Family Medicine, Physician [address] [place] [address] Social History Tobacco Use Types Packs/Day Years Used Date Smoking Tobacco: Never Assessed Sex and Gender Information Value Date Recorded Sex Assigned at Not on file Legal Sex Male 5:10 PM EDT Gender Identity Not on file Sexual Orientation Not on file documented as of this encounter Plan of Treatment Not on file documented as of this encounter Visit Diagnoses Not on filedocumented in this encounter
--- OUTSIDE RECORDS SUMMARY | 2024-06-22 19:23 | XMS_ITS | Encounter Summary ---
Author Organization [facility] Address [address] [place] [phone] Phone Care Team Providers Care Provider Relations Specialist Name Role Phone Unavailable Primary Care Provider Unavailabl e Encounter Details Date Type Department Care Team (Late st Contact Info) Description 05/18/2016 Documentation [facility] [place] [facility] [place] [address] Family Medicine, Physician [facility] [place] [address] Social History Tobacco Use Types Packs/Day Years Used Date Smoking Tobacco: Never Comments:Never smoker Sex and Gender Information Value Date Recorded Sex Assigned at Not on file Legal Sex Male 5:10 PM EDT Gender Identity Not on file Sexual Orientation Not on file documented as of this encounter Plan of Treatment Not on file documented as of this encounter Visit Diagnoses Not on filedocumented in this encounter
--- OUTSIDE RECORDS SUMMARY | 2024-06-22 19:23 | XMS_ITS | Encounter Summary ---
Author Organization [facility] Address [address] [place] [phone] Phone Care Team Providers Care Silk Top Hat Body Maker Name Role Phone Unavailable Primary Care Provider Unavailabl e Encounter Details Date Type Department Care Team (Late st Contact Info) Description 05/18/2016 Documentation [facility] [place] [facility] [place] [address] Family Medicine, Physician [facility] [place] [address] Social History Tobacco Use Types Packs/Day Years [...]
--- OUTSIDE RECORDS SUMMARY | 2024-06-22 19:23 | XMS_ITS | Encounter Summary ---
Author Organization [facility] Address [address] [place] [phone] Phone Care Team Providers Care Crop Or Livestock Tenant Farmer Name Role Phone Unavailable Primary Care Provider Unavailabl e Encounter Details Date Type Department Care Team (Late st Contact Info) Description 12/10/2016 Conversion Encounter [facility] - [address] [address] Social History Tobacco Use Types Packs/Day Years [...]
--- OUTSIDE RECORDS SUMMARY | 2024-06-22 19:23 | XMS_ITS | Clinical Summary ---
Author Organization [facility] Address [address] [place] [phone] Phone Care Team Providers Care Armor Officer Name Role Phone Unavailable Primary Care Provider Unavailabl e Allergies No known active allergies Medications albuterol HFA (PROAIR HFA) 108 (90 BASE) MCG/ACT inhaler PROAIR HFA; 2 puffs Q 3-4 hours prn wheeze; 90 MCG; 05/20/2016; Active 05/20/2016 Active Active Problems Problem Noted Date Diagnosed Date Astigmatism 11/07/2013 Overview (02/10/2018): Sees opthal yearly. Family says opthal told them that he no longer needed glasses (2013) Assessment & Plan (05/30/2018 10:25 AM EST): Glasses broken Patient to schedule follow up with ophthalmology if > 1 year, otherwise can call [facility] for new glasses Assessment & Plan (02/08/2017 2:16 PM EDT): Has glasses Intrinsic atopic dermatitis 11/07/2013 Overview (02/10/2018): triamcinalone prn Assessment & Plan (05/30/2018 10:26 AM EST): No current issues Immunizations Immunization Administration Dates Next Due DTaP 5 01/06/2005, 3,07/11/2001,05/11,02/04/2001 H1N1 08/15/2009 HPV, Quadrivalent 05/30/2013,11/10/2012,09/08/19 13 Hep A, ped/adol 11/07/2013,08/26/2010 Hep B, ped/adol 10/11/2001,02/04/2001,01/01/2001 Hib (PRP-T) 06/19/2002, 2,05/11/2001,03/07 IPV 01/06/2005, 2,05/11/2001,03/07 Influenza, injectable, quadr ivalent, preservative free 05/30/2018,02/08/2017 Influenza, injectable, trivalent 01/28/2006 MMR 01/06/2005,03/15/2002 Meningococcal Conj (Menactra) MCV4P 02/08/2017,0 09/07/2012 Pneumococcal Conjugate 01/16/2003,2001,05/11/2001,03/07 Tdap 09/07/2012 Varicella 02/03/2007,03/15/2002 Family History Medical History Relation Name Comments No Known Problems Brother Diabetes Father Hyperlipidemia Father Hypertension Father Diabetes Maternal Grandfather Alzheimer's disease Maternal Grandmother Hyperlipidemia Maternal Grandmother Hypertension Maternal Grandmother Hypertension Mother Diabetes Paternal Grandfather Breast cancer Paternal Grandmother No Known Problems Sister Relation Name Status Comments Brother Alive Brother: Depres nuria / ADHD Father Alive Father: Renal d isease Maternal Grandfather Alive Maternal Grandmother Mother Alive Mother: Depress ion / Hypertension /Anxiety Other Family history of Migraines, Family history of Sudden /[place] under age 55, Family history of Asthma, Family history of ADD/ADHD, Family history of Autism, Family history of Strabismus/amblyopia, Family history of Obesity Paternal Grandfather Paternal Grandmother Sister Alive Sister: Alive a nd well Social History Tobacco Use Types Packs/Day Years Used Date Smoking Tobacco: Never Smokeless Tobacco: Never Comments:Never smoker Alcohol Use Standard Drinks/Week Comments No 0 (1 standard drink = 0.6 oz pur e alcohol) Hunger/Food Answer Date Recorded No 01/20/2020 Stable Housing Answer Date Recorded No 01/20/2020 Transportation Concerns Answer Date Rec orded No 01/20/2020 Hazards in Home Answer Date Recorded Yes 03/09/2020 Financing Utilities Answer Date Recorde d No 03/09/2020 Safety at Home Answer Date Recorded No 03/09/2020 Outside Support Answer Date Recorded No 03/09/2020 Understanding Health Concerns Answer Da te Recorded No 03/09/2020 Financing Health Concerns Answer Date R ecorded No 03/09/2020 Missing School or Work Answer Date Radhames rded No 03/09/2020 Sex and Gender Information Value Date Recorded Sex Assigned at Not on file Legal Sex Male 5:10 PM EDT Gender Identity Not on file Sexual Orientation Not on file Last Filed Vital Signs Vital Sign Reading Time Taken Comments Blood Pressure 117/76 05/30/2018 9:49 AM EST Pulse 84 05/30/2018 9:49 AM EST Temperature 36.3 ??C (97.3 ??F) 05/30/2018 9:49 AM ES T Respiratory Rate - - Oxygen Saturation - - Inhaled Oxygen Concentration - - Weight 88.9 kg (196 lb) 05/30/2018 9:49 AM EST Height 168.3 cm (5' 6.25 ) 05/30/2018 9:49 AM ES T Body Mass Index 31.4 05/30/2018 9:49 AM EST Plan of Treatment Health Maintenance Due Date Last Done Comments Consider Men B Vaccine (1 of 2 - Bexsero 2-dose series) 2016 Men B Vaccine (1 of 2 - Standard) 2016 DTaP,Tdap,and Td Vaccines (6 - Td or Tdap) 09/07/2022 09/07/2012, 01/06/2005, 06/19/2002, Additional history exists Influenza Vaccines (#1) 2023 05/30/19 19, 02/08/2017, 01/28/2006 COVID-19 Vaccine ( - 2023-2 5 season) 2023 Hepatitis B Vaccines Completed 10/11/2001, 02/04/2001, 01/01/2001 HIB Vaccines Completed 06/19/2002, 06/24, 05/11/2001, Additional history exists Pneumococcal Vaccine Completed 01/16/2003, 07/11/2001, 05/11/2001, Additional history exists IPV Vaccines Completed 01/06/2005, 06/24, 05/11/2001, Additional history exists MMR Vaccines Completed 01/06/2005, 03/15/2002 Varicella Vaccines Completed 02/03/2007, 03/15/2002 HPV Vaccines Completed 05/30/2013, 10/24, 09/07/2012 Hepatitis A Vaccines Completed 11/07/2013, 08/27/19 Meningococcal Vaccine Completed 02/08/2017, [address] [place] [address] NON PCC
== END 2024-06-22 17:34 | disposition home or self-care (01) ==
PROVIDERS: PCP Internal Medicine; Visit Provider Internal Medicine
DX: Z00.00 Encounter for general adult medical examination without abnormal findings (principal); F33.9 Major depressive disorder, recurrent, unspecified; J45.909 Unspecified asthma, uncomplicated; Z68.39 Body mass index [BMI] 39.0-39.9, adult; K76.0 Fatty (change of) liver, not elsewhere classified; E66.9 Obesity, unspecified; Z23 Encounter for immunization

== ENCOUNTER → 2024-06-22 16:19 | Outpatient (BNVA) | payer OTHER, SELFPAY | PROVIDERS: PCP Internal Medicine; Visit Provider Internal Medicine | DX: Z00.00 Encounter for general adult medical examination without abnormal findings (principal); Z23 Encounter for immunization; J45.909 Unspecified asthma, uncomplicated; F33.9 Major depressive disorder, recurrent, unspecified; K76.0 Fatty (change of) liver, not elsewhere classified; E66.9 Obesity, unspecified | CPT/HCPCS: 90471; 90656; 99395 ==